=== PATIENT | female | born 1995 | race Two or more races ===

== ENCOUNTER 2019-08-31 16:49 | Emergency (ER) | payer OTHER ==
[~2019-08-31] VITALS: Ht 157.5 cm; Wt 44.0 kg
[2019-08-31 21:49] VITALS: BP 99/67
== END 2019-08-31 21:52 | disposition home or self-care (01) ==
LOC: ER 16:54
DX: J10.1 Influenza due to other identified influenza virus with other respiratory manifestations (principal); R19.7 Diarrhea, unspecified; R09.81 Nasal congestion
CPT/HCPCS: 71046; 81002; 81025; 87804

== ENCOUNTER 2021-11-14 02:44 | Emergency (ER) | payer SELFPAY ==
[~2021-11-14] VITALS: Ht 157.5 cm; Wt 49.9 kg
[2021-11-14 04:07] LABS: Basophils # (auto) 0 10 ^3/uL (0-0.2); Eosinophils # (auto) 0 10 ^3/uL (0-0.8); Eosinophils % (auto) 0.1 % (0.0-7.0); Hemoglobin 12.4 g/dL (12.2-16.2); Monocytes # (auto) 0.4 10 ^3/uL (0-1.3); Red Cell Distribution Width 16.1 % (11.8-14.3)
[2021-11-14 04:09] LABS: Basophils % (auto) 0.4 % (0.0-2.0); Hematocrit 36.8 % (36.0-46.0); Lymphocytes # (auto) 1.3 10 ^3/uL (0.4-5.4); Lymphocytes % (auto) 12.7 % (10.0-50.0); Mean Corpuscular Hemoglobin 26.3 pg (28.0-32.0); Mean Corpuscular Hgb Conc. 33.8 g/dL (32.0-36.0); Mean Corpuscular Volume 77.9 fL (80.0-100.0); Neutrophils # (auto) 8.6 10 ^3/uL (1.6-8.6); Neutrophils % (auto) 82.8 % (37.0-80.0); Red Blood Cells 4.72 10^6/uL (4.0-5.20); White Blood Cell 10.4 10^3/uL (4.4-10.8)
[2021-11-14 04:24] LABS: Albumin 4.4 g/dL (3.4-5.0); Potassium 3.3 mmol/L (3.5-5.1)
[2021-11-14 04:29] LABS: BUN/Creatinine Ratio 16.1; Bilirubin, Total 0.3 mg/dL (0.2-1.0); Total Protein 7.9 g/dL (6.4-8.2)
[2021-11-14 04:46] LABS: Urine Bacteria NONE SEEN /hpf (None Seen); Urine Blood 3+ /uL (Negative); Urine Mucus MODERATE (None Seen); Urine WBC 3 /hpf (0 - 5)
[2021-11-14 04:47] LABS: Urine Specific Gravity 1.026 (1.001-1.035)
[2021-11-14] MEDS ORDERED: SODIUM CHLORIDE 0.9% 1,000 ML IVB ONE (09:45)
[2021-11-14 10:53] VITALS: BP 100/65
[2021-11-14] MEDS ORDERED: POTASSIUM EFFERVESENT TAB 25 MEQ PO ONE (11:15)
== END 2021-11-14 11:55 | disposition home or self-care (01) ==
LOC: ER 02:55
DX: O03.9 Complete or unspecified spontaneous abortion without complication (principal); O23.41 Unspecified infection of urinary tract in pregnancy, first trimester; O99.011 Anemia complicating pregnancy, first trimester; E87.6 Hypokalemia; Z3A.01 Less than 8 weeks gestation of pregnancy
CPT/HCPCS: 36415; 76801; 76817; 80053; 81001; 84702; 85025; 96360; 99284; J7030

== ENCOUNTER 2022-09-07 02:19 | Observation (INO) | payer MEDICAID, OTHER ==
[~2022-09-07] VITALS: Ht 157.5 cm; Wt 59.0 kg
[2022-09-07] MEDS ORDERED: PREN-96 PO (02:48)
[2022-09-07] MEDS ORDERED: FERR-20 PO (02:48)
[2022-09-07] MEDS ORDERED: AMOX500T86 PO (03:30)
[2022-09-07] MEDS ORDERED: CEPH-322 PO (03:45)
== END 2022-09-07 04:00 | disposition home or self-care (01) ==
LOC: ER 02:19 → LDRP 02:30
PROVIDERS: ADMIT Obstetrics & Gynecology; ATTEND Obstetrics & Gynecology
DX: O26.893 Other specified pregnancy related conditions, third trimester (principal); R10.11 Right upper quadrant pain; O23.43 Unspecified infection of urinary tract in pregnancy, third trimester; O34.63 Maternal care for abnormality of vagina, third trimester; N89.8 Other specified noninflammatory disorders of vagina; Z3A.28 28 weeks gestation of pregnancy
CPT/HCPCS: 59025; 81002; 94760; G0378

== ENCOUNTER → 2023-08-21 | Outpatient (CLI) | payer OTHER ==
[~2023-08-21] MED LIST: AMOX500T86 PO; CEPH250C PO; FERR325T24 PO; PREN-96 PO
== END | disposition home or self-care (01) ==
LOC: LAB 09:01
PROVIDERS: ATTEND Licensed Practical Nurse
DX: Z01.84 Encounter for antibody response examination (principal)
CPT/HCPCS: 36415; 86706; 86735; 86762; 86765; 86787

== ENCOUNTER 2024-08-08 19:28 | Emergency (ER) | payer MEDICAID, OTHER ==
[~2024-08-08] VITALS: Ht 157.5 cm; Wt 64.4 kg
[2024-08-08] MEDS ORDERED: GABA-1308 PO (23:31)
--- NOTE | 2024-08-08 23:31 | ED.PDOC ---
Eye-HPI HPI Comments This is a 28-year-old female presents to the ED chief complaint left upper molar dental pain. Patient states had a crown and root canal done on 08/06/2024 she states had the same pain prior to the root canal which dentist was aware. States had multiple x-rays no other tooth with decay accept the one dentist worked on. The dentist states that the pain is likely from this tooth in the root canal should resolve it. Patient describes pain as sharp shooting left upper jaw tooth across left maxillary sinus into her left lower jaw. 10/10 pain when pain occurs. Denies numbness, weakness, nausea, vomiting, difficulty breathing, chest pain or shortness of breath. Chief Complaint: Face pain Time Seen by MD: 20:15 Primary Care Provider: RICARDO Reviewed Notes: Nurses Notes, Medications, Allergies Allergies: Coded Allergies: NO KNOWN ALLERGIES (Unverified , 09/07/22) Home Meds Reported Medications Cephalexin (KEFLEX CAPSULE) 250 Mg Cp, 500 MG PO QID 09/07/22 Amoxicillin & Pot Clavulanate (Augmentin) 500 Mg Tab, 1 TAB PO BID, #14 TAB 09/07/22 Ferrous Sulfate (Ferrous Sulfate) 325 Mg Tab, 325 MG PO DAILY for 30 Days, MG 09/07/22 Vit W/ Ferrous Fumara ( One Daily) Daily Tab, 1 TAB PO DAILY, #90 TAB 3 Refills 09/07/22 Information Source: Patient Mode of Arrival: Ambulatory Past Medical History PAST MEDICAL HISTORY: Denies Surgical History: Denies all surgeries Surgical History (Other): Root canal on 08/06/2024 CHEMICAL SUPERVISOR History: 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 History Family History Family History: Reviewed,noncontributory to illness Social History Smoker: Non-Smoker Alcohol: Denies ETOH Use Drugs: Denies Drug Use Lives In: Home Constitutional: denies: chills, diaphoresis, fatigue, fever, malaise, sweats, weakness, others EENTM: reports: others (Dental pain); denies: blurred vision, double vision, ea r bleeding, ear discharge, ear drainage, ear pain, ear ringing, eye pain, eye redness, hearing loss, mouth pain, mouth swelling, nasal discharge, nose bleeding, nose congestion, nose pain, photophobia, tearing, throat pain, throat swelling, voice changes Respiratory: denies: cough, hemoptysis, orthopnea, SOB at rest, shortness of breath, SOB with excertion, stridor, wheezing, others Cardiovascular: denies: chest pain, dizzy spells, diaphoresis, Dyspnea on exertion, edema, irregular heart beat, left arm pain, lightheadedness, palpitations, PND, syncope, others Gastrointestinal: denies: abdomen distended, abdominal pain, blood streaked bowels, constipated, diarrhea, dysphagia, difficulty swallowing, hematemesis, melena, nausea, poor appetite, poor fluid intake, rectal bleeding, rectal pain, vomiting, others Genitourinary: denies: abnormal vagina bleeding, burning, dyspareunia, dysuria, flank pain, frequency, hematuria, incontinence, pain, , vagina discharge, urgency, others Neurological: denies: dizziness, fainting, headache, left sided numbness, left sided weakness, numbness, paresthesia, pre-existing deficit, right sided numbness, right sided weakness, seizure, speech problems, tingling, tremors, weakness, others Musculoskeletal: denies: back pain, gout, joint pain, joint swelling, muscle pain, muscle stiffness, neck pain, others Integumetry: denies: bruises, change in color, change in hair/nails, dryness, laceration, lesions, lumps, rash, wounds, others Allergic/Immunocompromised: denies: Difficulty Healing, Frequent Infections, Hives, Itching, others Hematologic/Lymphatic: denies: anemia, blood clots, easy bleeding, easy bruising, swollen glands, others Endocrine: denies: excessive hunger, excessive sweating, excessive thirst, excessive urination, flushing, intolerance to cold, intolerance to heat, unexplained weight gain, unexplained weight loss, others Psychiatric: denies: anxiety, bipolar disorder, depression, hopeless, panic disorder, schizophrenia, sleepless, suicidal, others Physical Exam General Appearance: No Apparent Distress, Normal HEENT: Normal ENT Inspection, Pharynx Normal, Sinuses (Nontender on palpation), TMs Normal Neck: Full Range of Motion, Non-Tender, Normal, Normal Inspection Respiratory: Chest Non-Tender, Lungs Clear, No Accessory Muscle Use, No Respiratory Distress, Normal Breath Sounds Cardiovascular: No Edema, No JVD, No Murmur, No Gallop, Normal Peripheral Pulses, Regular Rate/Rhythm Breast Exam: Deferred Gastrointestinal: Non Tender, Soft Genitalia: Deferred Pelvic: Deferred Rectal: Deferred Extremities: Normal inspection Musculoskeletal : Apperance: Normal Neurologic: Alert, 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 Was a procedure done?: No EENT DIFF Eye: N/A Ear: Sinusitis, N/A Nose: N/A Mouth: N/A X-Ray, Labs, Meds, VS Vital Signs Date Time Temp Pulse Resp B/P (MAP) Pulse Ox O2 Delivery O2 Flow Rate FiO2 08/08/24 19:35 97.6 101 16 140/110 (120) 97 X-Ray, Labs, Meds, VS Comment Likely nerve pain advised to follow back up with the dentist on Friday. We will trial gabapentin and Toradol 60 mg IM. ED return cautions provided. Patient agrees with discharge plan of care. Time of 1ST Reevaluation: 23:26 Reevaluation 1ST: Improved Patient Education/Counseling: Diagnosis, Treatment, Prognosis, Need For Follow Up Family Education/Counseling: Diagnosis, Treatment, Prognosis, Need For Follow Up Departure 1 Departure Time of Disposition: 23:26 Impression: Primary Impression: Pain, dental Disposition: 01 HOME / SELF CARE / HOMELESS Condition: Stable e-Prescriptions Gabapentin (Gabapentin) 100 Mg Cap 1 CAP PO TID for 7 Days, #21 CAP 2 Refills Prov: YODIT CASEY 08/08/24 Discharged With: Relative (Mother) Critical Care Note Critical Care Time?: No Stability Stability form required: YODIT Ashley Aug 08, 2024 23:31
[2024-08-08 23:53] VITALS: BP 115/82; PULSE 102; RESP 16; TEMP 97.8; O2SAT 98
[2024-08-08] MEDS: KETOROLAC TROMETH 60MG/2ML VIAL IM ONE (23:53)
[2024-08-08] MEDS: GABAPENTIN 100 MG CAP PO ONE (23:53)
== END 2024-08-08 23:57 | disposition home or self-care (01) ==
LOC: ER 19:28
DX: K08.89 Other specified disorders of teeth and supporting structures (principal); R51.9 Headache, unspecified
CPT/HCPCS: 96372; 99283; J1885

== ENCOUNTER 2024-08-09 21:26 | Emergency (ER) | payer MEDICAID ==
[~2024-08-09] VITALS: Ht 157.5 cm; Wt 65.0 kg
[~2024-08-09 21:26] MED LIST changes: +GABA-1308 PO
[2024-08-10 00:50] VITALS: BP 112/76; PULSE 89; RESP 16; TEMP 98.7; O2SAT 97
--- NOTE | 2024-08-10 01:03 | ED.PDOC ---
Eye-HPI HPI Comments 28 year old female presents to ER for evaluation of dental pain. Patient states she followed up with a dentist with regards to her left upper toothache pain 4 days ago and had a root canal done to left upper 1st bicuspid tooth at that time but is still experiencing the same pain localized to left upper 1st bicuspid tooth that she had prior to the root canal being done prompting her to come to ER for further evaluation. Patient states she followed up with the same dentist yesterday and was told that her dental exam was normal at that time and started on "azithromycin" antibiotics along with prescribed Ibuprofen and Tylenol 3 that she has been taking with little relief. She notes that the left side of her face did also appear swollen yesterday morning and presents to ER ambulatory on arrival in no distress with no skin changes to face appreciated. Denies fever, headache, n/v, numbness/tingling or any further symptoms/complaints Chief Complaint: Jaw Pain Time Seen by MD: 22:08 Primary Care Provider: DENIES Reviewed Notes: Nurses Notes, Medications, Allergies Allergies: Coded Allergies: NO KNOWN ALLERGIES (Unverified , 09/07/22) Home Meds Active Scripts Gabapentin (Gabapentin) 100 Mg Cap, 1 CAP PO TID for 7 Days, #21 CAP 2 Refills Prov:YODIT CASEY [employer] MARKETING TEAM LEADER 08/08/24 Reported Medications Cephalexin (KEFLEX CAPSULE) 250 Mg Cp, 500 MG PO QID 09/07/22 Amoxicillin & Pot Clavulanate (Augmentin) 500 Mg Tab, 1 TAB PO BID, #14 TAB 09/07/22 Ferrous Sulfate (Ferrous Sulfate) 325 Mg Tab, 325 MG PO DAILY for 30 Days, MG 09/07/22 Vit W/ Ferrous Fumara ( One Daily) Daily Tab, 1 TAB PO DAILY, #90 TAB 3 Refills 09/07/22 Information Source: Patient Mode of Arrival: Ambulatory Past Medical History PAST MEDICAL HISTORY: Denies Surgical History: Denies all surgeries SALES 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 Family History Family History: Unknown Social History Smoker: Non-Smoker Alcohol: Denies ETOH Use Drugs: Denies Drug Use Lives In: Home Constitutional: denies: chills, diaphoresis, fatigue, fever, malaise, sweats, weakness, others EENTM: reports: others (As stated in HPI) Respiratory: denies: cough, hemoptysis, orthopnea, SOB at rest, shortness of breath, SOB with excertion, stridor, wheezing, others Cardiovascular: denies: chest pain, dizzy spells, diaphoresis, Dyspnea on exertion, edema, irregular heart beat, left arm pain, lightheadedness, palpitations, PND, syncope, others Gastrointestinal: denies: abdomen distended, abdominal pain, blood streaked bowels, constipated, diarrhea, dysphagia, difficulty swallowing, hematemesis, melena, nausea, poor appetite, poor fluid intake, rectal bleeding, rectal pain, vomiting, others Genitourinary: denies: abnormal vagina bleeding, burning, dyspareunia, dysuria, flank pain, frequency, hematuria, incontinence, pain, , vagina discharge, urgency, others Neurological: denies: dizziness, fainting, headache, left sided numbness, left sided weakness, numbness, paresthesia, pre-existing deficit, right sided numbness, right sided weakness, seizure, speech problems, tingling, tremors, weakness, others Musculoskeletal: denies: back pain, gout, joint pain, joint swelling, muscle pain, muscle stiffness, neck pain, others Integumetry: denies: bruises, change in color, change in hair/nails, dryness, laceration, lesions, lumps, rash, wounds, others Allergic/Immunocompromised: denies: Difficulty Healing, Frequent Infections, Hives, Itching, others Hematologic/Lymphatic: denies: anemia, blood clots, easy bleeding, easy bruising, swollen glands, others Endocrine: denies: excessive hunger, excessive sweating, excessive thirst, excessive urination, flushing, intolerance to cold, intolerance to heat, unexplained weight gain, unexplained weight loss, others Psychiatric: denies: anxiety, bipolar disorder, depression, hopeless, panic disorder, schizophrenia, sleepless, suicidal, others Physical Exam General Appearance: No Apparent Distress HEENT: Normal ENT Inspection (No swelling/erythema to gums or dental abnormalities appreciated. No facial swelling/skin changes noted. 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 Was a procedure done?: No Sedation Sedation?: No EENT DIFF Eye: N/A Mouth: Thrush, Other (Dental abscess, fractured tooth) X-Ray, Labs, Meds, VS Vital Signs Date Time Temp Pulse Resp B/P (MAP) Pulse Ox O2 Delivery O2 Flow Rate FiO2 08/10/24 00:50 98.7 89 16 112/76 (88) 97 98.7 08/10/24 00:50 89 16 97 Room Air 08/09/24 21:39 97.9 88 16 116/74 (88) 98 Hurricane spray ordered, patient educated on proper use/dosage Advised to drink plenty of fluids Previous chart visit was reviewed Advised to follow up with PCP and dentist in 1-2 days Patient verbalized understanding and agreeable with current plan of care Advised to return to ER immediately if symptoms worsen Time of 1ST Reevaluation: 00:44 Reevaluation 1ST: N/A Patient Education/Counseling: Diagnosis, Treatment, Prognosis, Need For Follow Up Family Education/Counseling: No Family Present Departure 1 Departure Time of Disposition: 01:00 Impression: Primary Impression: Pain, dental Disposition: 01 HOME / SELF CARE / HOMELESS Condition: Stable Discharged With: Self Critical Care Note Critical Care Time?: No Stability Stability form required: No Heart Score Heart Score: Heart Score Response (Comments) Value History N/A 0 EKG N/A 0 Age N/A 0 Risk Factors N/A 0 Troponin N/A 0 Total 0 VERENA HILL Aug 10, 2024 01:03
[2024-08-10] MEDS: BENZOCAINE (DENTAL) 20 % SPRAY 60ML MT ONE (01:07)
== END 2024-08-10 01:17 | disposition home or self-care (01) ==
LOC: ER 21:26
DX: K08.89 Other specified disorders of teeth and supporting structures (principal); Z79.899 Other long term (current) drug therapy